=== PATIENT | male | born 1955 | race Caucasian/White ===

== ENCOUNTER 2017-03-15 12:13 | Day surgery (SDC) | payer OTHER ==
[~2017-03-15] VITALS: Ht 170.2 cm; Wt 100.7 kg
[2017-03-15] MEDS ORDERED: ASPIRIN (14:37)
[2017-03-15] MEDS ORDERED: LISINOPRIL (14:37)
[2017-03-15 14:38] VITALS: Ht 170.2 cm; Wt 100.7 kg
[2017-03-15] MEDS ORDERED: LIDOCAINE 2% (SDV) 5 ML INJ ONE (15:00)
[2017-03-15] MEDS ORDERED: PROPOFOL 20 ML ONE (15:00)
[2017-03-15] MEDS ORDERED: MIDAZOLAM 1 MG/ML 2 ML INJ ONE (15:00)
[2017-03-15 15:29] VITALS: BP 179/104; PULSE 90; RESP 14
[2017-03-15 16:20] VITALS: BP 137/92; PULSE 94; RESP 12
--- NOTE | 2017-03-15 20:32 | GILP ---
DATE OF PROCEDURE: NAME OF PROCEDURE: Colonoscopy to cecum. SURGEON: Zaira Wiggins MD. PREMEDICATION: Monitored anesthesia care by anesthesiologist. INSTRUMENT USED: Olympus colonoscope. PREPARATION: Adequate. TECHNIQUE: After informed consent, with the patient/relatives understanding the procedure, its indic ations potential risks and complications, including but not limited to: allergic reaction, bleeding, perforation, infection, missed lesions, and after all pertinent questions were answered to the ayla ent's satisfaction, the patient/relatives signed the witnessed informed consent. Following this, premedication was administered slowly IV push by under careful cardiovascular and re spiratory monitoring with pulse oximetry, automatic blood pressure and monitoring specialist. Once the sedati ve effect was achieved, the patient was placed in the left lateral decubitus position, digital recta l examination was performed. The colonoscope was then introduced and advanced under visual control throughout all segments of the colon including: the rectum, sigmoid, descending colon, splenic flexu re, transverse colon, hepatic flexure, ascending colon and finally reaching the cecum which was joy rly identified by transillumination, finger indentation and the ileocecal valve. Careful examinatio n of the mucosa of the lower gastrointestinal tract both on insertion as well as withdrawal of the i nstrument disclosed the following findings: Rectal Examination: No evidence of perirectal disease, no masses. Colonic Mucosa: Colon mucosa is remarkable for diverticulosis in left side of the colon, which is m ild. Otherwise, the mucosa appears unremarkable throughout. The ileocecal valve was clearly identi fied and appears unremarkable. The instrument was withdrawn reexamining the mucosa in detail. No a dditional abnormalities are noted with exception of moderate sized internal hemorrhoids. The instrument was then withdrawn, the patient tolerated the procedure well and was transferred out of the [facility]oscopy Suite awake and in good condition to continue recovery under observation. IMPRESSION: 1. Diverticulosis, left side of the colon. 2. Moderate sized internal hemorrhoids. PLAN: The patient will be continued on present regimen. Annual Hemoccult stool testing is recommen ded and a screening colonoscopy in 10 years is recommended. Dictated By: ZAIRA WIGGINS MS/NTS Conf#: [id number] DID#: [id number] CC: ZAIRA WIGGINS;*EndCC*
== END 2017-03-15 17:04 | disposition home or self-care (01) ==
LOC: GIL 12:13
PROVIDERS: ATTEND Internal Medicine Gastroenterology
DX: K57.90 Diverticulosis of intestine, part unspecified, without perforation or abscess without bleeding (principal); K64.8 Other hemorrhoids; I10 Essential (primary) hypertension; E66.9 Obesity, unspecified; Z68.34 Body mass index [BMI] 34.0-34.9, adult
CPT/HCPCS: 45378; J2250; Z7610